=== PATIENT | male | born 1945 | race Caucasian/White ===

== ENCOUNTER 2016-07-09 13:24 | Observation (INO) ==
--- NOTE | 2016-07-09 13:55 | Emergency Department Note ---
Disposition Clinical Impression: Syncope and collapse Scalp hematoma Qualifiers: Encounter type: initial encounter Qualified Code(s): S00.03XA - Contusion of scalp, initial encounter Disposition: Admitted As Inpatient Condition: Fair Time of Disposition: 15:01 Fall HPI - General Chief Complaint: ED Head Injury Stated Complaint: fall/head injury Time Seen by Provider: 07/09/16 13:29 Source: family, EMS Nursing Notes Reviewed: Yes Vital Signs Reviewed: Yes - History of Present Illness HPI Narrative: 71-year-old male with a history of SVT presents to the emergency department after a syncopal episode. For about a month he wore a loop recorder as directed by his laminator preforms, they mail this back in about 10 days ago and were following up on the results of this. The patient and his were walking inside and the patient called out his 's name. When she turned around the patient collapsed to the ground hitting the back of his head and was briefly unresponsive. The patient states he does not remember the event and just remembers blacking out and denies any other preceding symptoms. This has never happened to him in the past. He complains of some pain in the back of his head and reports significant nausea with recurrent episodes of vomiting. He takes no anticoagulants. He report some neck soreness. He denies any blurry vision , numbness or weakness into his extremities. Denies any abdominal pain, chest pain or shortness of breath. denies any ripping or tearing pain. His reports in January he was diagnosed with viral encephalitis and was seen at [facility]. He also had multiple TIAs at that time and they are unsure what caused this and had a workup. She reports that he was doing well until today. - Related Data Home Medications Medication Instructions Recorded Confirmed Aspirin Enteric Coated [Aspirin EC] 81 mg PO DAILY 07/09/16 07/09/16 Cholecalciferol (D-3) [Vitamin D] 1,000 unit PO DAILY 07/09/16 07/09/16 Diltiazem HCl [Diltiazem ER] 120 mg PO DAILY 07/09/16 07/09/16 Finasteride [Proscar] 5 mg PO DAILY 07/09/16 07/09/16 Sertraline [Zoloft] 50 mg PO DAILY 07/09/16 07/09/16 Tamsulosin [Flomax] 0.4 mg PO DAILY 07/09/16 07/09/16 Allergies Allergy/AdvReac Type Severity Reaction Status Date / Time acetaminophen [From Percocet] AdvReac Vomiting Verified 07/09/16 13:44 Oxycodone [From Percocet] AdvReac Vomiting Verified 07/09/16 13:44 All systems ED: reviewed and negative except as stated. Constitutional: Denies: fever Eyes: Denies: vision change Cardiovascular: Denies: chest pain Respiratory: Denies: cough, dyspnea Gastrointestinal: Reports: nausea, vomiting. Denies: abdominal pain Musculoskeletal: Denies: back pain Neurological: Reports: headache. Denies: weakness, numbness, paresthesias Fall PMH - Past Medical History Medical history: Reports: CVA, SVT, other Psychiatric history: Reports: anxiety, depression - Social History Smoking Status: Never smoker Alcohol use: Reports: none Drug use: Reports: none Physical Exam General: Patient appears dazed but is awake, and oriented, he was actively vomiting upon arrival to the ER Cardiovascular: Regular rate and rhythm. S1, S2. No murmurs, rubs or gallops. Respiratory: Breath sounds clear bilaterally. No wheezing, rales or rhonchi. No resp distress Abdomen: Soft, nontender. No guarding, rebound or rigidity. No bruising or signs of injury Neck: He has a c-collar but no midline tenderness and no step-off or deformity Eyes: Pupils equally round and reactive to light, extraocular muscles intact, conjunctiva clear, no facial injury HENT: There is ecchymosis and swelling of the occiput. The c-collar is in place which limits the distal evaluation, is no active bleeding Neuro: 5/5 upper and lower extremity strength throughout. He has symmetric train announcer bilaterally, symmetric strength in the lower extremities bilaterally. Sensation is symmetric and intact. He is awake and alert. No facial asymmetry. He is speaking fluently without difficulties. Musculoskeletal: There is no joint swelling or signs of injury. Skin: No lesions. No diaphoresis. Normal turgor. Normal color Psych: Appropriate - General Limitations: altered mental status General appearance: other Course Course Narrative: Presents after a syncopal event. On admission patient backboarded and C- collared. No neuro deficit on exam. EKG shows no acute ischemic changes. Labs including CBC, BMP are unremarkable except for a potassium of 3.4. He had worn a loop monitor for a month but took it off about 10 days ago and was following up with the card table attendant for the results of that. I am unable to access his loop recorder results. He has been completely stable in the emergency department. Hematoma on the back of the head without any laceration. CT scan of the head and neck are unremarkable. Chest x-ray is clear. No ectopy on the monitor. At this time my concern is patient had an arrhythmia which caused his syncope and collapse. I spoke with the on-call hospitalist, Dr. Gary who accepts for admission but would like me to speak with the laminator preforms regarding the results of the loop recorder and to place a consult. I will page the laminator preforms. Vital Signs Temperature 98.2 F 07/09/16 13:26 Pulse Rate 73 07/09/16 13:26 Respiratory Rate 18 07/09/16 13:26 Blood Pressure 171/76 07/09/16 13:26 O2 Sat by Pulse Oximetry 99 07/09/16 13:26 Temperature 98.2 F 07/09/16 13:26 Pulse Rate 66 07/09/16 15:34 Respiratory Rate 16 07/09/16 15:34 Blood Pressure 154/83 07/09/16 15:34 O2 Sat by Pulse Oximetry 96 07/09/16 15:34 Oxygen Delivery Oxygen Delivery Room Air Fall - Lab Data Result diagrams: 07/09/16 14:00 07/09/16 14:00 Lab Results 07/09/16 07/09/16 07/09/16 Range/Units 13:43 14:00 14:00 WBC 7.0 (4.3-11.1) K/mcL RBC 4.76 (4.19-5.50) M/mcL Hgb 14.0 (12.9-16.9) g/dL Hct 41.8 (37.5-50.1) % MCV 87.8 (83.0-100.0) fL MCH 29.4 (28.0-33.3) pg MCHC 33.5 (31.6-35.5) g/dL RDW 12.9 (11.5-14.5) % Plt Count 164 (140-400) K/mcL MPV 10.5 (9.4-12.4) fL Immature Gran % 0.4 (0-4) % Seg Neutrophils % 68.8 % Lymphocytes % 17.9 % Monocytes % 10.9 % Eosinophils % 1.1 % Basophils % 0.9 % Neutrophils # 4.8 (1.6-8.9) K/mcL Lymphocytes # 1.3 (0.6-4.6) K/mcL Monocytes # 0.8 (0.0-1.3) K/mcL Eosinophils # 0.1 (0.0-0.6) K/mcL Basophils # 0.1 (0.0-0.2) K/mcL Sodium 142 (136-145) mEq/L Potassium 3.4 L (3.5-4.5) mEq/L Chloride 107 (98-109) mEq/L Carbon Dioxide 23 (19-29) mEq/L BUN 20 (8-26) mg/dL Creatinine 1.21 (0.72-1.25) mg/dL Est GFR ( Amer) > 60 (> 60) Est GFR (Non-Af Amer) 59 L (> 60) BUN/Creatinine Ratio 17 (6-26) Glucose 150 H (70-99) mg/dL POC Glucose 142 H (58-89) Calculated Osmolality 299 (280-300) Calcium 9.0 (8.6-10.8) mg/dL Troponin I (0-0.03) ng/mL 07/09/16 Range/Units 14:00 WBC (4.3-11.1) K/mcL RBC (4.19-5.50) M/mcL Hgb (12.9-16.9) g/dL Hct (37.5-50.1) % MCV (83.0-100.0) fL MCH (28.0-33.3) pg MCHC (31.6-35.5) g/dL RDW (11.5-14.5) % Plt Count (140-400) K/mcL MPV (9.4-12.4) fL Immature Gran % (0-4) % Seg Neutrophils % % Lymphocytes % % Monocytes % % Eosinophils % % Basophils % % Neutrophils # (1.6-8.9) K/mcL Lymphocytes # (0.6-4.6) K/mcL Monocytes # (0.0-1.3) K/mcL Eosinophils # (0.0-0.6) K/mcL Basophils # (0.0-0.2) K/mcL Sodium (136-145) mEq/L Potassium (3.5-4.5) mEq/L Chloride (98-109) mEq/L Carbon Dioxide (19-29) mEq/L BUN (8-26) mg/dL Creatinine (0.72-1.25) mg/dL Est GFR ( Amer) (> 60) Est GFR (Non-Af Amer) (> 60) BUN/Creatinine Ratio (6-26) Glucose (70-99) mg/dL POC Glucose (58-89) Calculated Osmolality (280-300) Calcium (8.6-10.8) mg/dL Troponin I 0.00 (0-0.03) ng/mL - EKG Data EKG results narrative: EKG shows a sinus rhythm with a rate of 70 bpm. There is no significant ST elevation. T-wave flattening in lead 3. NV, QRS, QT interval within normal limits. Attestation Statement - Attestation Attestation: I, Oz Tabor, examined this patient and my medical decision-making was reviewed with the FARM OWNER OPERATOR/PA/Advanced Practice Nurse/Resident Physician. I agree with the documented findings, disposition and treatment plan as described except to the extent set forth below. 71-year-old male brought in by EMS after a syncopal episode. Patient was walking into an appointment with his laminator preforms to review his recent Holter monitor results when he suddenly became lightheaded and fell backwards striking his head on concrete. Patient appeared unconscious and a bystander started CPR. Unknown if patient had a pulse at this time. Upon arrival to the emergency department the patient is awake and alert however he has vomited multiple times during the transport. Patient has repetitive questioning. He moves all extremities and has equal strength bilaterally. Significant other reports multiple TIAs over the past year. EKG shows normal sinus rhythm with a rate of 70 without evidence of STEMI. CT of the head and neck are negative for acute fracture or intracranial hemorrhage. Laboratory evaluation is largely within normal limits. Patient is now able to carry a conversation after observation in the emergency department. Patient likely has a concussion from striking his head on the ground. Patient is comfortable with the plan for admission to hospital for further evaluation of syncope and likely concussion.
[2016-07-09 14:09] LABS: Basophils # 0.1 K/mcL (0.0-0.2); Basophils % 0.9 %; Eosinophils # 0.1 K/mcL (0.0-0.6); Eosinophils % 1.1 %; Hematocrit 41.8 % (37.5-50.1); Immature Granulocytes % 0.4 % (0-4); Lymphocytes # 1.3 K/mcL (0.6-4.6); Lymphocytes % 17.9 %; Mean Corpuscular HGB Conc 33.5 g/dL (31.6-35.5); Mean Corpuscular Hemoglobin 29.4 pg (28.0-33.3); Mean Corpuscular Volume 87.8 fL (83.0-100.0); Mean Platelet Volume 10.5 fL (9.4-12.4); Monocytes # 0.8 K/mcL (0.0-1.3); Monocytes % 10.9 %; Neutrophils # 4.8 K/mcL (1.6-8.9); Platelet Count 164 K/mcL (140-400); Red Blood Count 4.76 M/mcL (4.19-5.50); Red Cell Distribution Width 12.9 % (11.5-14.5); Segmented Neutrophils % 68.8 %
[2016-07-09 14:21] LABS: BUN/Creatinine Ratio 17 (6-26); Blood Urea Nitrogen 20 mg/dL (8-26); Carbon Dioxide 23 mEq/L (19-29); Chloride 107 mEq/L (98-109); Glucose 150 mg/dL (70-99); Osmolality,Calculated 299 (280-300); Potassium 3.4 mEq/L (3.5-4.5); Sodium 142 mEq/L (136-145); eGFR For African Americans > 60 (> 60); eGFR For Non-African Americans 59 (> 60)
[2016-07-09] MEDS ORDERED: Potassium Chloride 20 MEQ, Lidocaine 1% 2 ML in D5% in Water 250 ML IVPB ONE (15:31)
[2016-07-09] MEDS ORDERED: Acetaminophen 325 MG TABLET PO PRN (16:36)
[2016-07-09] MEDS ORDERED: Naloxone 0.4 MG/ML INJ IVP PRN (16:36)
--- NOTE | 2016-07-09 17:12 | Internal Med History&Physical ---
Date of Encounter: 07/09/16 Time of Encounter: 17:05 Assessment and Plan (1) Syncope and collapse Current visit: Yes Status: Acute Patient experienced palpitations and lightheadedness prior to losing consciousness and falling. He wore a holter monitor for 1 month and was on his way to a cardiology appointment with Dr. Dumont for discussion of Loop recorder placement when this occurred. He has a history of TIAs. Concern for arrhythmia. EKG shows NSR. Head CT shows no acute intracranial abnormality. Continuous cardiac cath lab manager serial troponins echocardiogram carotid dopplers Consult to cardiology. (2) Scalp hematoma Current visit: Yes Status: Acute Patient fell and hit his head when he lost consciousness. There is a 6 x 2 cm ecchymosis on the crown of his scalp with abrasion. CT head was negative for any intracranial abnormality. Neuro assessments thus far have been WNL. Qualifiers: Encounter type: initial encounter Qualified Code(s): S00.03XA - Contusion of scalp, initial encounter (3) Hypokalemia Current visit: Yes Status: Acute potassium of 3.4. Stat Mg ordered. 20mEq of KCL IVPB ordered. Recheck chemistry in the morning. (4) DVT prophylaxis Current visit: Yes Status: Acute anti-embolic stockings Lovenox 40mg SQ daily Internal Medicine - H&P: HPI Chief complaint: syncope Admitted From: Emergency Dept Plans for Post Hospital Care: Home History of present illness: Mr. Nuñez is a 71 year old male with BPH, remote history of colon cancer status post colectomy, recent history of viral encephalopathy in December 2015, TIAs, SVT, presented to the emergency department today after having an episode of syncope and falling. Patient reports he was on his way into an appointment with Dr. Dumont cardiology to discuss a loop recorder placement, when he lost consciousness and fell. Patient reports he recalls feeling some palpitations, "wobbly", and lightheaded, and then does not remember what happened. When he came to he was confused. He did hit the back of his head. He denies headache, chest pain, shortness breath, fever, chills, sweats, nausea, vomiting. On my assessment, he is alert and oriented 3. Evaluation emergency department included an EKG which showed sinus rhythm heart rate in the 70s, troponin was negative at 0.0, he was mildly hypokalemic with potassium of 3.4, mild renal insufficiency with BUN 20 and creatinine 1.21. He had mild blood sugar elevation to 150. Head CT shows no acute intracranial abnormality. CT of the cervical spine shows decreased bone mineral density with normal cervical spine alignment and multilevel degenerative changes, no acute cervical spine fracture. On exam, patient is alert and oriented, in no acute distress. Heart has regular rate and rhythm lungs are clear bilaterally to auscultation. He does have a 6 cm x 2 cm ecchymosis on the crown of his head with abrasion, scant serosanguineous drainage. Past Med Surg Social Fam HX - Past Medical History Medical history: cancer (history of colon cancer s/p colectomy), CVA, GERD, SVT , other Psychiatric history: anxiety, depression - Past Surgical History Surgical History: colectomy, orthopedic, other (right elbow) - Social History Smoking Status: Never smoker Smokeless Tobacco Status: No Alcohol use: none Drug use: none - Family History Mother Living Status: Age at : 86 Father Living Status: Age at : 55 Cause of : lung ca Hx Family Cancer: Yes Internal Medicine - H&P: Meds Aspirin Enteric Coated [Aspirin EC] 81 mg PO DAILY 07/09/16 [History] Cholecalciferol (D-3) [Vitamin D] 1,000 unit PO DAILY 07/09/16 [History] Diltiazem HCl [Diltiazem ER] 120 mg PO DAILY 07/09/16 [History] Finasteride [Proscar] 5 mg PO DAILY 07/09/16 [History] Sertraline [Zoloft] 50 mg PO DAILY 07/09/16 [History] Tamsulosin [Flomax] 0.4 mg PO DAILY 07/09/16 [History] Allergies acetaminophen [From Percocet] Adverse Reaction (Verified 07/09/16 13:44) Vomiting Oxycodone [From Percocet] Adverse Reaction (Verified 07/09/16 13:44) Vomiting All Systems PM: A 10-system review of systems was performed and is negative for pertinent findings except as documented above in the HPI. - Constitutional Constitutional: falls, no chills, no fever(s), no night sweats - EENT Eyes: no change in vision, no discharge, no pain, no photophobia Ears: no ear discharge, no ear pain, no tinnitus Nose, mouth and throat: no dysphagia, no nasal discharge, no neck pain, no sore throat - Cardiovascular Cardiovascular ROS IM: lightheadedness, palpitations, syncope, no chest pain, no diaphoresis, no dyspnea - Respiratory Respiratory: no cough, no dyspnea, no wheezing, no excessive phlegm production - Gastrointestinal Gastrointestinal: no abdominal pain, no diarrhea, no hematemesis, no hematochezia, no melena, no nausea, no vomiting - Musculoskeletal Musculoskeletal ROS IM: no numbness, no tingling - Integumentary Integumentary IM: no rash, no unusual bruising - Neurological Neurological ROS: no confusion, no convulsions, no focal weakness, no numbness, no tingling, no tremor(s) - Hematologic/Lymphatic Hematologic/Lymphatic: no easy bruising - Constitutional Vitals: Temp Pulse Resp BP Pulse Ox 98.2 F 66 16 155/81 96 07/09/16 13:26 07/09/16 15:34 07/09/16 16:15 07/09/16 16:15 07/09/16 15:34 General appearance: Present: A&O X 3, pleasant, no acute distress - Head Head exam: Present: normocephalic Additional comments: 6 x 2 cm ecchymosis at crown of head with abrasion draining scant serosanguinous - Eye Eye exam: Present: PERRL, conjuntiva pink, sclera anicteric Pupils: Present: PERRL - Neck Neck exam general surgery: Present: supple, trachea midline. Absent: lymphadenopathy - Respiratory Respiratory exam: Present: CTAB. Absent: accessory muscle use, rales, rhonchi, wheezes - Cardiovascular Cardiovascular exam: Present: RRR, +S1, +S2. Absent: diastolic murmur, gallop, rubs, systolic murmur - GI/Abdominal GI/Abdominal exam: Present: normal bowel sounds, soft, no peritoneal signs. Absent: distended, tenderness - Extremities Exam Extremities exam: Present: warm, radial pulses palpable and symetrical. Absent : calf tenderness, cyanotic, pedal edema - Neurological Exam Neurological exam: Present: CN II-XII intact, oriented X3, no focal deficits. Absent: pronater drift, facial droop, speech deficit - Skin Skin exam: Present: dry, intact Internal Med - H&P Results - Labs CBC & Chem 7: 07/09/16 14:00 07/09/16 14:00 Labs: All Lab Results (24 Hours) 07/09/16 07/09/16 07/09/16 Range/Units 13:43 14:00 14:00 WBC 7.0 (4.3-11.1) K/mcL RBC 4.76 (4.19-5.50) M/mcL Hgb 14.0 (12.9-16.9) g/dL Hct 41.8 (37.5-50.1) % MCV 87.8 (83.0-100.0) fL MCH 29.4 (28.0-33.3) pg MCHC 33.5 (31.6-35.5) g/dL RDW 12.9 (11.5-14.5) % Plt Count 164 (140-400) K/mcL MPV 10.5 (9.4-12.4) fL Immature Gran % 0.4 (0-4) % Seg Neutrophils % 68.8 % Lymphocytes % 17.9 % Monocytes % 10.9 % Eosinophils % 1.1 % Basophils % 0.9 % Neutrophils # 4.8 (1.6-8.9) K/mcL Lymphocytes # 1.3 (0.6-4.6) K/mcL Monocytes # 0.8 (0.0-1.3) K/mcL Eosinophils # 0.1 (0.0-0.6) K/mcL Basophils # 0.1 (0.0-0.2) K/mcL Sodium 142 (136-145) mEq/L Potassium 3.4 L (3.5-4.5) mEq/L Chloride 107 (98-109) mEq/L Carbon Dioxide 23 (19-29) mEq/L BUN 20 (8-26) mg/dL Creatinine 1.21 (0.72-1.25) mg/dL Est GFR ( Amer) > 60 (> 60) Est GFR (Non-Af Amer) 59 L (> 60) BUN/Creatinine Ratio 17 (6-26) Glucose 150 H (70-99) mg/dL POC Glucose 142 H (58-89) Calculated Osmolality 299 (280-300) Calcium 9.0 (8.6-10.8) mg/dL Troponin I (0-0.03) ng/mL 07/09/16 Range/Units 14:00 WBC (4.3-11.1) K/mcL RBC (4.19-5.50) M/mcL Hgb (12.9-16.9) g/dL Hct (37.5-50.1) % MCV (83.0-100.0) fL MCH (28.0-33.3) pg MCHC (31.6-35.5) g/dL RDW (11.5-14.5) % Plt Count (140-400) K/mcL MPV (9.4-12.4) fL Immature Gran % (0-4) % Seg Neutrophils % % Lymphocytes % % Monocytes % % Eosinophils % % Basophils % % Neutrophils # (1.6-8.9) K/mcL Lymphocytes # (0.6-4.6) K/mcL Monocytes # (0.0-1.3) K/mcL Eosinophils # (0.0-0.6) K/mcL Basophils # (0.0-0.2) K/mcL Sodium (136-145) mEq/L Potassium (3.5-4.5) mEq/L Chloride (98-109) mEq/L Carbon Dioxide (19-29) mEq/L BUN (8-26) mg/dL Creatinine (0.72-1.25) mg/dL Est GFR ( Amer) (> 60) Est GFR (Non-Af Amer) (> 60) BUN/Creatinine Ratio (6-26) Glucose (70-99) mg/dL POC Glucose (58-89) Calculated Osmolality (280-300) Calcium (8.6-10.8) mg/dL Troponin I 0.00 (0-0.03) ng/mL - Diagnostic Studies Chest x-ray Additional comments: Chest X-Ray 07/09/16 13:30 IMPRESSION: 1. No active pulmonary disease. D/ / Deshawn Colin MD / Deshawn Colin MD Interpreting Provider: Deshawn Colin MD CT scan - head Additional comments: Head CT 07/09/16 13:30 IMPRESSION: 1. No acute intracranial abnormality. 2. Decreased bone mineral density with normal cervical spine alignment and multilevel degenerative changes. 3. No acute cervical spine fracture. D/ / 07/09/2016 15:21:34 Sudhakar Patel MD / Cecilia Coleman Interpreting Provider: Sudhakar Patel MD
--- NOTE | 2016-07-09 18:07 | Event Note ---
Date of Encounter: 07/09/16 Time of Encounter: 18:03 Patient seen and examined with nurse practitioner. Patient had a syncopal episodes after a prodromal 10 seconds suggesting a cardiac origin. Likely related to arrhythmia. Patient had a recent 30 day event monitor according to documentation was noncontributory and the plan was to place Loop recorder. Actually cardio pulmonary resuscitation was performed for a brief period after nurse examining the patient felt that his pulse was very weak. He had palpitations prior to the fall but no chest pain. No prior known history of coronary artery disease. When admitted to the hospital continuous telemetry monitoring. Serial cardiac markers. Potassium is 3.4, that will be replaced and magnesium is normal. QTC interval is normal 410 ms. will do syncope workup. Check EEG. Emergency room physician already spoken with cardiology service will be seeing the patient. Patient is full code. Prognosis guarded
[2016-07-10 04:17] LABS: Basophils # 0.1 K/mcL (0.0-0.2); Basophils % 0.8 %; Eosinophils # 0.1 K/mcL (0.0-0.6); Eosinophils % 0.8 %; Hemoglobin 14.4 g/dL (12.9-16.9); Immature Granulocytes % 0.4 % (0-4); Lymphocytes # 1.3 K/mcL (0.6-4.6); Mean Corpuscular HGB Conc 33.5 g/dL (31.6-35.5); Mean Corpuscular Hemoglobin 29.5 pg (28.0-33.3); Mean Corpuscular Volume 88.1 fL (83.0-100.0); Monocytes # 0.9 K/mcL (0.0-1.3); Monocytes % 11.7 %; Neutrophils # 5.5 K/mcL (1.6-8.9); Platelet Count 158 K/mcL (140-400); Red Blood Count 4.88 M/mcL (4.19-5.50); Red Cell Distribution Width 13.1 % (11.5-14.5); Segmented Neutrophils % 70.3 %
[2016-07-10 05:33] LABS: BUN/Creatinine Ratio 15 (6-26); Blood Urea Nitrogen 17 mg/dL (8-26); Calcium 8.9 mg/dL (8.6-10.8); Carbon Dioxide 24 mEq/L (19-29); Chloride 107 mEq/L (98-109); Glucose 103 mg/dL (70-99); Osmolality,Calculated 292 (280-300); Potassium 3.9 mEq/L (3.5-4.5); Sodium 140 mEq/L (136-145); eGFR For African Americans > 60 (> 60); eGFR For Non-African Americans > 60 (> 60)
--- NOTE | 2016-07-10 09:12 | Cardiology Progress Note ---
Date of Encounter: 07/10/16 Time of Encounter: 09:00 Assessment and Plan (1) H/O supraventricular tachycardia Current Visit: Yes Status: Acute EKG and tele monitor reviewed with NSR, no SVT appreciated trop 0.00>0.01 awaiting carotid and ECHO studies recommend follow up with cardiology as outpt consider loop recorder placement as outpt (2) Syncope and collapse Current Visit: Yes Status: Acute EKG with NSR Head CT shows no acute intracranial abnormality. Continuous cardiac rehab nurse serial troponins echocardiogram carotid dopplers Discussion w patient/family: The assessment and plan as outlined above was discussed with the patient and/or family members who expressed understanding and agreement. All questions were answered. Thank you for involving us in the care of your patient. Please call with any questions. Subjective Principal diagnosis: syncope Objective Vital Signs, Last 4 Hours Pulse Resp BP Pulse Ox 07/10/16 06:56 62 145/78 91 07/10/16 06:12 70 16 157/75 94 General: Conversant, No Apparent Distress HEENT: Mucus Membranes Moist, Other (posterior occiput abrasion) Neck: No JVD, Normal carotid pulses Cardiac: Reg Rate and Rhythm, Normal S1 and S2, No Murmur Lungs: Normal Breath Sounds, No Wheeze, Rales, Rhonchi Neuro: Alert and responsive, No focal deficits noted Abdomen: Soft, Non-Tender Skin: No rashes noted on visualized skin Musculoskeletal: No Chest Wall Tenderness Extremities: No Clubbing, No Cyanosis, No Edema, Normal Pulses Results 07/10/16 03:11 07/10/16 03:11 Lab Results 07/09/16 07/10/16 07/10/16 20:07 03:11 03:11 WBC 7.8 Hgb 14.4 Hct 43.0 Plt Count 158 Sodium Potassium Chloride Carbon Dioxide BUN Creatinine Glucose Calcium Troponin I 0.00 0.01 07/10/16 03:11 WBC Hgb Hct Plt Count Sodium 140 Potassium 3.9 Chloride 107 Carbon Dioxide 24 BUN 17 Creatinine 1.10 Glucose 103 H Calcium 8.9 Troponin I Consult Discharge Plan - Plan Referrals: Kerry Miller [Primary Care Provider] - 07/16/16 10:15 am
[2016-07-10] MEDS: Diltiazem CD (24hr) 120 MG CAPSULE PO SCH (09:49)
[2016-07-10] MEDS: Finasteride 5 MG TABLET PO SCH (09:49)
[2016-07-10] MEDS: Aspirin Enteric Coated 81 MG Tablet PO SCH (09:50)
--- NOTE | 2016-07-10 10:41 | ECHO - Doppler Report ---
Echocardiogram Name: Bala Nuñez Date of Study: 07/10/2016 Date: 1945 Ht: 68.0 in Medical Record#: [id number] Age: 71 Wt: 148.0 lb Gender: Male BSA: 1.8 Order #: [id number] Location: [facility] Room #: 2A13 Reading Physician: Mesha Stearns DO Recoating Machine Operator: Chasity Morgan RDCS Ordering Physician: Marizol Vila CNP Primary Physician: Kerry Miller CNP Indications: Syncope Impressions: LVEF 60%. Normal left ventricular size and systolic function. There is evidence of mild diastolic dysfunction of the left ventricle. Normal right ventricular size and function. No significant valvular dysfunction. No pulmonary hypertension. Left Ventricular Wall Motion: Rest Echo Findings All wall segments showed normal motion. Findings: Study Quality * Technically adequate exam. ECG Findings * Normal sinus rhythm. Left Ventricle * LVEF 60%. * Normal LV chamber size, wall thickness and function. * Mild left ventricular diastolic dysfunction. Aorta * Normally sized aortic root. Left Atrium * Normal left atrial size. Aortic Valve * No aortic regurgitation. * No aortic stenosis. * Not well visualized. Mitral Valve * No mitral regurgitation. * Normal mitral valve structure. * No mitral stenosis. Tricuspid Valve * Tricuspid valve not well visualized. * Trace tricuspid regurgitation. Pulmonic Valve * Pulmonic valve is not well visualized. * No pulmonic stenosis. * No pulmonic regurgitation. Pulmonary Artery * Pulmonary artery not well visualized. Right Ventricle * Normal right ventricular structure and function. Not well visualized in subcostal view. Right Atrium * Normal right atrial size. Interatrial Septum * Interatrial septum not well evaluated. Pericardium * There is no pericardial effusion present. IVC * The IVC is not well evaluated. History Hypertension Hypercholesteremia Measurements: BP: 157/ 75 2D Normal Values RVIDd: 2.40 cm <2.7 cm IVSd: 1.00 cm 0.6 - 1.0 cm LVIDd: 4.90 cm 3.7 - 5.6 cm LVPWd: 1.10 cm 0.6 - 1.1 cm LVIDs: 3.20 cm 1.5 - 3.6 cm LA: 2.90 cm 2.0 - 4.0cm %FS: 34.70 cm >25 % LA volume: 19 Mitral Valve Peak E:.58 m/sec Peak A:.71 m/sec E/A Ratio:0.8 Peak E' Lat Moris:11.5 cm/s Peak E' Med Moris:7.13 cm/s E/E' Lat Ratio:5.1 E/E' Med Ratio:8.2 Tricuspid Valve TV Regurg Peak Grad: 18.00mmHg TV Regurg Peak Moris: 2.12m/sec Updated by Mesha Stearns on 07/10/2016 10:37:12 AM electronically signed on 07/10/2016 10:37:46 AM with status of Final Wall Motion Phillips: 1=Normal, 2=Hypokinesis, 3=Akinesis, 4=Dyskinesis, 5=Aneurysmal, 6=Hyperkinetic, X=Not Visualized (Blank)=Missing
[2016-07-10 11:10] LABS: Thyroid Stimulating Hormone 0.941 mcIU/mL (0.350-4.840)
--- NOTE | 2016-07-10 14:06 | Carotid Imaging Report ---
Carotid Duplex Patient Name:Bala Nuñez Order Number:[id number] Procedure Date:07/10/2016 Date:4Age:71 yrs Gender:Male Rt.BP:157 / 75 mmHgHeart Rate: Location:[facility] Room #: 2A13 Fur Polisher:Chasity Morgan, RDCS Referring MD:Marizol Vila AIR DISPATCHER lawn mower repairer:Kerry Miller, AIR DISPATCHER Reading MD:Andrew Paz MD Primary Indications:Syncope and collapse Risk Factors Yes/No Hypertension Yes Hypercholesterolemia Yes Hx of TIA Yes Impressions: The right carotid artery has minimal plaque throughout. The left carotid artery is normal throughout. Recommendations: After imaging the patient returned to their room. Preliminary noted in pt EMR. Findings Carotid Duplex: Right: The right proximal common carotid artery has a PSV of 109 cm/s and a EDV of 20 cm/s. The right mid common carotid artery has a PSV of 112 cm/s and a EDV of 20 cm/s. The right distal common carotid artery has a PSV of 98 cm/s and a EDV of 21 cm/s. There is nonstenotic plaque in the right bifurcation with a PSV of 67 cm/s and a EDV of 15 cm/s. The right proximal internal carotid artery has a PSV of 79 cm/s and a EDV of 9 cm/s. The right mid internal carotid artery has a PSV of 65 cm/s and a EDV of 13 cm/s. The right distal internal carotid artery has a PSV of 89 cm/s and a EDV of 17 cm/s. The right eca has a PSV of 126 cm/s and a EDV of 12 cm/s. The right vertebral artery has a PSV of 68 cm/s and a EDV of 13 cm/s. There is antegrade spectral Doppler flow patterns. Left: The left proximal common carotid artery has a PSV of 131 cm/s and a EDV of 21 cm/s. The left mid common carotid artery has a PSV of 86 cm/s and a EDV of 19 cm/s. The left distal common carotid artery has a PSV of 90 cm/s and a EDV of 19 cm/s. The left bifurcation has a PSV of 79 cm/s and a EDV of 16 cm/s. The left proximal internal carotid artery has a PSV of 76 cm/s and a EDV of 17 cm/s. The left mid internal carotid artery has a PSV of 84 cm/s and a EDV of 26 cm/s. The left distal internal carotid artery has a PSV of 75 cm/s and a EDV of 24 cm/s. The left eca has a PSV of 141 cm/s and a EDV of 17 cm/s. The left vertebral artery has a PSV of 79 cm/s and a EDV of 17 cm/s. There is antegrade spectral Doppler flow patterns. Carotid Results Right PSV EDV Assessment Proximal CCA 109 20 Mid CCA 112 20 Distal CCA 98 21 Bifurcation 67 15 Non Stenotic Plaque Proximal ICA 79 9 Mid ICA 65 13 Distal ICA 89 17 ECA 126 12 Vertebral Artery 68 13 Antegrade Flow Left PSV EDV Assessment Proximal CCA 131 21 Mid CCA 86 19 Distal CCA 90 19 Bifurcation 79 16 Proximal ICA 76 17 Mid ICA 84 26 Distal ICA 75 24 ECA 141 17 Vertebral Artery 79 17 Antegrade Flow Ratio's Right ICA/CCA Ratio: 0.79 ICA/CCA Values: 89/112 Left ICA/CCA Ratio: 0.98 ICA/CCA Values: 84/86 Updated by Andrew Paz MD on 07/10/2016 2:01:01 PM electronically signed on 07/10/2016 2:01:15 PM with status of Final
--- NOTE | 2016-07-10 14:52 | Internal Med Progress Note ---
Date of Encounter: 07/10/16 Time of Encounter: 10:50 - Assessment and plan (1) Syncope and collapse Current Visit: Yes Status: Acute Assessment and plan: Echocardiogram and carotid duplex requested. CT of the head obtained, no acute abnormalities. Follow recommendations by cardiology. (2) H/O supraventricular tachycardia Current Visit: Yes Status: Acute (3) Hypokalemia Current Visit: Yes Status: Acute Assessment and plan: Resolve, we will monitoring potassium levels. (4) DVT prophylaxis Current Visit: Yes Status: Acute - Subjective Interval history: First encounter with the patient. The patient was asked afebrile, denied chest pain during this encounter. No shortness of breath. She was admitted due to syncope. - Constitutional Vitals: Temp Pulse Resp BP Pulse Ox 98.0 F 74 16 134/71 93 07/10/16 12:28 07/10/16 13:59 07/10/16 13:59 07/10/16 13:59 07/10/16 13:59 General appearance: Present: A&O X 3, pleasant, no acute distress - Head Head exam: Present: atraumatic, normocephalic - Eye Eye exam: Present: PERRL, conjuntiva pink, sclera anicteric Pupils: Present: PERRL - Neck Neck exam general surgery: Present: supple, trachea midline. Absent: lymphadenopathy - Respiratory Respiratory exam: Present: CTAB. Absent: accessory muscle use, rales, rhonchi, wheezes - Cardiovascular Cardiovascular exam: Present: RRR, +S1, +S2. Absent: diastolic murmur, gallop, rubs, systolic murmur - GI/Abdominal GI/Abdominal exam: Present: normal bowel sounds, soft, no peritoneal signs. Absent: distended, tenderness - Extremities Exam Extremities exam: Present: warm, radial pulses palpable and symetrical. Absent : calf tenderness, cyanotic, pedal edema - Neurological Exam Neurological exam: Present: CN II-XII intact, oriented X3, no focal deficits. Absent: pronater drift, facial droop, speech deficit - Skin Skin exam: Present: dry, intact Internal Medicine: Result - Labs CBC & Chem 7: 07/10/16 03:11 07/10/16 03:11 Labs: Short CBC 07/10/16 Range/Units 03:11 WBC 7.8 (4.3-11.1) K/mcL Hgb 14.4 (12.9-16.9) g/dL Hct 43.0 (37.5-50.1) % Plt Count 158 (140-400) K/mcL Neutrophils # 5.5 (1.6-8.9) K/mcL BMP 07/10/16 03:11 Sodium 140 Potassium 3.9 Chloride 107 Carbon Dioxide 24 BUN 17 Creatinine 1.10 Glucose 103 H Calcium 8.9 Cardiac Enzymes 07/09/16 07/10/16 Range/Units 20:07 03:11 Troponin I 0.00 0.01 (0-0.03) ng/mL Consult Discharge Plan - Plan Referrals: Kerry Miller [Primary Care Provider] - 07/16/16 10:15 am
--- NOTE | 2016-07-10 15:14 | Event Note ---
Date of Encounter: 07/10/16 Time of Encounter: 15:00 - Cardiology Event Note Recurrent syncope - plan for implantable loop recorder. TTE and carotid duplex without significant findings.
--- NOTE | 2016-07-10 15:49 | Cardiology Consult Note ---
Date of Encounter: 07/10/16 Time of Encounter: 09:00 Assessment and Plan (1) H/O supraventricular tachycardia Current Visit: Yes Status: Acute EKG and tele monitor reviewed with NSR, no SVT appreciated trop 0.00>0.01 awaiting carotid and ECHO studies recommend follow up with cardiology as outpt consider loop recorder placement as outpt (2) Syncope and collapse Current Visit: Yes Status: Acute EKG with NSR Head CT shows no acute intracranial abnormality. Continuous court recording monitor serial troponins echocardiogram carotid dopplers Discussion w patient/family: The assessment and plan as outlined above was discussed with the patient and/or family members who expressed understanding and agreement. All questions were answered. Thank you for involving us in the care of your patient. Please call with any questions. History of Present Illness Consult date: 07/10/16 Requesting physician: Harvinder Jaramillo Consult reason: syncope Chief complaint: fall History of present illness: Mr. Nuñez is a 71 year old male PMHx SVT, viral encephalitis, multiple TIA. pt states that he was on his way to see Dr. Dumont in clinic yesterday to discuss holter monitor results and possible loop recorder placement. Pt states while walking in parking lot he got nauseated and felt generalized weakness and lightheaded and felt a few palpitations. After palpitations, pt states he blacked out and the next thing he remembered was being surrounded by several people while laying on the ground. Pt's states that after pt regained consciousness he was disoriented for a few minutes before fulling "coming to". He states he never had any chest pain, shortness of breath, numbness/tingling sensations. Pt states that he has had similar episodes of heart palpitations with lightheadedness and weakness but has not passed out and hit his head prior to yesterday. States he is not on blood thinners, denies prior WI, CHF, Afib. Denies any bleeding disorders, WI, PE, DVT. Pt currently complains of some head and neck pain where he hit ground. Past Med Surg Social Fam HX - Past Medical History Medical history: cancer (history of colon cancer s/p colectomy), CVA, GERD, SVT , other Psychiatric history: anxiety, depression - Past Surgical History Surgical History: colectomy, orthopedic, other (right elbow) - Social History Smoking Status: Never smoker Smokeless Tobacco Status: No Alcohol use: none Drug use: none - Family History Mother History Unknown: Yes Living Status: Age at : 86 Father Living Status: Age at : 55 Cause of : lung ca Hx Family Cardiac Disorders: Yes Hx Family Cancer: Yes Medications and Allergies Aspirin Enteric Coated [Aspirin EC] 81 mg PO DAILY 07/09/16 [History] Cholecalciferol (D-3) [Vitamin D] 1,000 unit PO DAILY 07/09/16 [History] Diltiazem HCl [Diltiazem ER] 120 mg PO DAILY 07/09/16 [History] Finasteride [Proscar] 5 mg PO DAILY 07/09/16 [History] Sertraline [Zoloft] 50 mg PO DAILY 07/09/16 [History] Tamsulosin [Flomax] 0.4 mg PO DAILY 07/09/16 [History] Allergies acetaminophen [From Percocet] Adverse Reaction (Verified 07/09/16 13:44) Vomiting Oxycodone [From Percocet] Adverse Reaction (Verified 07/09/16 13:44) Vomiting All Systems Review: A 10-system review of systems was performed and is negative for pertinent findings except as documented above in the HPI. - Constitutional Constitutional: no fatigue, no fever(s), no frequent falls - EENT Eyes: no blurred vision, no loss of vision - Cardiovascular Cardiovascular: irregular heart rhythm, lightheadedness, palpitations, rapid heart rate, no chest pain at rest, no chest pain with exertion, no diaphoresis, no dyspnea at rest, no dyspnea on exertion - Respiratory Respiratory: no dyspnea - Gastrointestinal Gastrointestinal: no nausea - Neurological Neurological: dizziness, syncope, no focal weakness, no loss of vision, no numbness, no tingling Physical Examination Vital Signs, Last 4 Hours Temp Pulse Resp BP Pulse Ox 07/10/16 13:59 74 16 134/71 93 07/10/16 12:28 98.0 F 67 16 138/79 92 General: Conversant, No Apparent Distress HEENT: Atraumatic, Normocephaly, Mucus Membranes Moist Neck: No JVD, Normal carotid pulses Cardiac: Reg Rate and Rhythm, Normal S1 and S2, No Murmur Lungs: Normal Breath Sounds, No Wheeze, Rales, Rhonchi Neuro: Alert and responsive, No focal deficits noted Abdomen: Soft, Non-Tender Skin: Other (posterior occiput with contusion and abrasion) Musculoskeletal: No Chest Wall Tenderness Extremities: No Clubbing, No Cyanosis, No Edema, Normal Pulses Results 07/10/16 03:11 07/10/16 03:11 Lab Results 07/09/16 07/10/16 07/10/16 20:07 03:11 03:11 WBC 7.8 Hgb 14.4 Hct 43.0 Plt Count 158 Sodium Potassium Chloride Carbon Dioxide BUN Creatinine Glucose Calcium Troponin I 0.00 0.01 TSH 07/10/16 03:11 WBC Hgb Hct Plt Count Sodium 140 Potassium 3.9 Chloride 107 Carbon Dioxide 24 BUN 17 Creatinine 1.10 Glucose 103 H Calcium 8.9 Troponin I TSH 0.941 Consult Discharge Plan - Plan Referrals: Kerry Miller [Primary Care Provider] - 07/16/16 10:15 am
--- NOTE | 2016-07-10 17:17 | Electrocardiograph Report ---
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
[2016-07-11 04:15] LABS: Basophils # 0.1 K/mcL (0.0-0.2); Basophils % 1.4 %; Eosinophils # 0.2 K/mcL (0.0-0.6); Eosinophils % 2.6 %; Hematocrit 45.5 % (37.5-50.1); Hemoglobin 14.6 g/dL (12.9-16.9); Immature Granulocytes % 0.5 % (0-4); Lymphocytes # 1.5 K/mcL (0.6-4.6); Lymphocytes % 23.2 %; Mean Corpuscular HGB Conc 32.1 g/dL (31.6-35.5); Mean Corpuscular Hemoglobin 28.4 pg (28.0-33.3); Mean Corpuscular Volume 88.5 fL (83.0-100.0); Mean Platelet Volume 10.6 fL (9.4-12.4); Monocytes # 0.9 K/mcL (0.0-1.3); Monocytes % 13.1 %; Neutrophils # 3.9 K/mcL (1.6-8.9); Platelet Count 169 K/mcL (140-400); Red Blood Count 5.14 M/mcL (4.19-5.50); Segmented Neutrophils % 59.2 %
[2016-07-11 04:34] LABS: BUN/Creatinine Ratio 17 (6-26); Blood Urea Nitrogen 19 mg/dL (8-26); Calcium 8.9 mg/dL (8.6-10.8); Carbon Dioxide 25 mEq/L (19-29); Chloride 108 mEq/L (98-109); Glucose 101 mg/dL (70-99); Magnesium 1.8 mg/dL (1.6-2.6); Osmolality,Calculated 294 (280-300); Potassium 4.1 mEq/L (3.5-4.5); Sodium 141 mEq/L (136-145); eGFR For African Americans > 60 (> 60); eGFR For Non-African Americans > 60 (> 60)
[2016-07-11] MEDS: Aspirin Enteric Coated 81 MG Tablet PO SCH (09:20)
[2016-07-11] MEDS: Finasteride 5 MG TABLET PO SCH (09:21)
[2016-07-11] MEDS: Diltiazem CD (24hr) 120 MG CAPSULE PO SCH (09:21)
--- NOTE | 2016-07-11 09:40 | Event Note ---
Date of Encounter: 07/11/16 Time of Encounter: 09:33 - Cardiology Event Note Mr. Nuñez underwent loop recorder insertion this morning for unexplained recurrent syncope. Recent holter showed no concerning arrhythmia. 24 Hour telemetry review shows NSR. No VT or significant bradycardia seen. Avg HR 71 bpm. TTE shows normal LV function and no significant valvular disease. Pt denies recurrent symptoms. Cardiology will sign off. Out patient f/u will be coordinated by [facility].
--- NOTE | 2016-07-11 10:37 | Discharge Summary ---
Date of Encounter: 07/11/16 Time of Encounter: 10:00 - Discharge Diagnosis (1) Syncope and collapse Priority: Primary Status: Acute (2) H/O supraventricular tachycardia Priority: Secondary Status: Acute (3) Hypokalemia Priority: Secondary Status: Acute (4) DVT prophylaxis Priority: Secondary Status: Acute - Discharge Medications Home Medications: Aspirin Enteric Coated [Aspirin EC] 81 mg PO DAILY 07/09/16 [History] Cholecalciferol (D-3) [Vitamin D] 1,000 unit PO DAILY 07/09/16 [History] Diltiazem HCl [Diltiazem ER] 120 mg PO DAILY 07/09/16 [History] Finasteride [Proscar] 5 mg PO DAILY 07/09/16 [History] Sertraline [Zoloft] 50 mg PO DAILY 07/09/16 [History] Tamsulosin [Flomax] 0.4 mg PO DAILY 07/09/16 [History] Allergies/Adverse Reactions: Allergies acetaminophen [From Percocet] Adverse Reaction (Verified 07/09/16 13:44) Vomiting Oxycodone [From Percocet] Adverse Reaction (Verified 07/09/16 13:44) Vomiting Procedures/tests Complete & Pending: Procedures Performed prior 72 hours Category Date Time Status CL Insert Loop Recorder [CL] Routine Humanities Coordinator 07/11/16 07:37 Ordered EV carotid duplex imaging BI Routine Y 07/10/16 08:23 Completed EV echocardiogram Routine Y 07/10/16 08:23 Completed Date of admission: 07/09/16 16:01 Primary care physician: Kerry Miller Discharging clinician: Harvinder Jaramillo Anticipated date of discharge: 07/11/16 - Patient Status Disposition: Home, Self-Care Condition: Fair Functional capacity at discharge: independent ambulation Overall status at discharge: patient is back to baseline - Discharge Instructions Follow Up With: Kerry Miller [Primary Care Provider] - 07/16/16 10:15 am - Diet and Activity Activity: increase activity as tolerated Diet: advance to your usual diet Interval History: Mr. Nuñez is a 71 year old male with BPH, remote history of colon cancer status post colectomy, recent history of viral encephalopathy in December 2015, TIAs, SVT, presented to the emergency department today after having an episode of syncope and falling. Patient reports he was on his way into an appointment with Dr. Dumont cardiology to discuss a loop recorder placement, when he lost consciousness and fell. Patient reports he recalls feeling some palpitations, "wobbly", and lightheaded, and then does not remember what happened. When he came to he was confused. He did hit the back of his head. He denies headache, chest pain, shortness breath, fever, chills, sweats, nausea, vomiting. On my assessment, he is alert and oriented 3. Evaluation emergency department included an EKG which showed sinus rhythm heart rate in the 70s, troponin was negative at 0.0, he was mildly hypokalemic with potassium of 3.4, mild renal insufficiency with BUN 20 and creatinine 1.21. He had mild blood sugar elevation to 150. Head CT shows no acute intracranial abnormality. CT of the cervical spine shows decreased bone mineral density with normal cervical spine alignment and multilevel degenerative changes, no acute cervical spine fracture. On exam, patient is alert and oriented, in no acute distress. Heart has regular rate and rhythm lungs are clear bilaterally to auscultation. He does have a 6 cm x 2 cm ecchymosis on the crown of his head with abrasion, scant serosanguineous drainage. Past Med Surg Social Fam Hospital course: Mr. Nuñez is a 71 year old male admitted due to syncope, he underwent transthoracic echo which revealed normal LV function and no significant valvular disease. The patient underwent loop recorder insertion this morning, she will follow up with cardiology as outpatient. Patient is otherwise stable, he will be discharged home today, he will follow up as outpatient with both his primary care physician and cardiology. He also underwent head CT which was essentially unremarkable, chest x-ray was also unremarkable. Initially he had some hypokalemia with a potassium of 2.4, which was corrected. Otherwise his lab work was essentially unremarkable. The plan of discharge and follow-up was discussed in detail with the patient and his , they both expressed understanding. - Time Spent with Patient Total time spent providing and/or coordinating discharge services: - Constitutional Vitals: Temp Pulse Resp BP Pulse Ox 98.1 F 60 18 143/77 94 07/11/16 07:14 07/11/16 07:14 07/11/16 07:14 07/11/16 07:14 07/11/16 09:30 General appearance: Present: A&O X 3, pleasant, no acute distress - Head Head exam: Present: atraumatic, normocephalic - Eye Eye exam: Present: PERRL, conjuntiva pink, sclera anicteric Pupils: Present: PERRL - Neck Neck exam general surgery: Present: supple, trachea midline. Absent: lymphadenopathy - Respiratory Respiratory exam: Present: CTAB. Absent: accessory muscle use, rales, rhonchi, wheezes - Cardiovascular Cardiovascular exam: Present: RRR, +S1, +S2. Absent: diastolic murmur, gallop, rubs, systolic murmur - GI/Abdominal GI/Abdominal exam: Present: normal bowel sounds, soft, no peritoneal signs. Absent: distended, tenderness - Extremities Exam Extremities exam: Present: warm, radial pulses palpable and symetrical. Absent : calf tenderness, cyanotic, pedal edema - Neurological Exam Neurological exam: Present: CN II-XII intact, oriented X3, no focal deficits. Absent: pronater drift, facial droop, speech deficit - Skin Skin exam: Present: dry, intact
[2016-07-11 10:58] VITALS: BP 122/66
--- NOTE | 2016-07-11 17:24 | Invasive Diagnostic Lab ---
Loop Recorder Insertion Name: Bala Nuñez Date of Study: 07/11/2016 Date: 1945 Ht: 173.0 cm / 68.1 in Medical Record#: [id number] Age: 71 Wt: 68.0 kg / 149.9 lb Gender: Male BSA: 1.81 Location: Fluoro Dose: 0 mGy BMI: 22.72 Performing MD: Oz Dumont MD, [facility] Procedures Performed: Procedure LOOP RECORDER INSERTION Indications: Description Cryptogenic Stroke Syncope Atrial arrhythmia Impressions: IMPLANTABLE LOOP RECORDER * Loop recorder successfully implant. Procedure complete without incident. Appropriate device functionality was observed at the end of the case. Procedure Description: After informed consent was obtained, the patient was prepped and draped in the sterile fashion exposing the left chest. Local anesthesia was performed using 1% Lidocaine. A 1cm incision was created with the punch tool. A small pocket was created for the loop recorder. The loop recorder was placed in the pocket with the provided tool. Steri-Strips were affixed and 4x4s rolled with tape. Procedure Medications: Time Medication Dose Unit Route 08:30 AM Lidocaine 2% 5 mL Subcutaneous Contrast: Isovue 0 ml. Complications: No complications occurred during the procedure. Complication 0 Updated by Oz Dumont MD, [facility] on 07/11/2016 5:18:55 PM electronically signed on 07/11/2016 5:19:13 PM with status of Final
== END 2016-07-11 14:00 | disposition home or self-care (01) ==
LOC: 2ANU 13:24 → EMEROO 13:24 → 2ANU 17:02
PROVIDERS: ADMIT Nurse Practitioner Family; ATTEND Internal Medicine